=== PATIENT | male | born 1975 | race Caucasian/White ===

== ENCOUNTER 2017-07-30 12:49 | Emergency (ER) | payer MEDICAID ==
[~2017-07-30] VITALS: Ht 170.2 cm; Wt 81.6 kg
[2017-07-30 14:11] LABS: BASOPHIL % 0.7 % (0-2); PLATELET COUNT 241 x10^3mcL (130-400); RED CELL DISTRIBUTION WIDTH 14.1 % (11.5-14.5)
[2017-07-30 14:21] LABS: CALCIUM 8.7 mg/dL (8.5-10.1); CARBON DIOXIDE 32.6 mmol/L (21-32); CHLORIDE SERUM 102 mmol/L (98-107); CREATININE SERUM 0.8 mg/dL (0.7-1.3); GFR1 > 60 mL/min; GLUCOSE SERUM 82 mg/dL (74-106); POTASSIUM SERUM 4.3 mmol/L (3.5-5.1); SODIUM SERUM 139 mmol/L (136-145)
[2017-07-30 14:26] LABS: ALBUMIN 3.5 g/dL (3.4-5.0); ALKALINE PHOSPHATASE 95 U/L (46-116); ALT/SGPT 34 U/L (16-63); AST/SGOT 28 U/L (15-37); BILIRUBIN TOTAL 0.3 mg/dL (0.20-1.00); LIPASE 116 IU/L (73-393); TOTAL PROTEIN, SERUM 7.1 g/dL (6.4-8.2)
[2017-07-30 16:14] VITALS: BP 135/84
== END 2017-07-30 16:14 | disposition home or self-care (01) ==
LOC: ED 12:49
PROVIDERS: Emergency Medicine
DX: S20.211A Contusion of right front wall of thorax, initial encounter (principal); S30.1XXA Contusion of abdominal wall, initial encounter; S80.12XA Contusion of left lower leg, initial encounter; S80.11XA Contusion of right lower leg, initial encounter; S30.0XXA Contusion of lower back and pelvis, initial encounter; V43.92XA Unspecified car occupant injured in collision with other type car in traffic accident, initial encounter; Y93.89 Activity, other specified; Y99.8 Other external cause status; Y92.89 Other specified places as the place of occurrence of the external cause
CPT/HCPCS: J2270; J2405; Q9967

== ENCOUNTER 2018-05-17 08:34 | Emergency (ER) | payer OTHER ==
[~2018-05-17] VITALS: Ht 170.2 cm; Wt 91.6 kg
[2018-05-17 08:38] VITALS: Ht 170.2 cm; Wt 91.6 kg
[2018-05-17 09:23] LABS: microscopic required? NO
[2018-05-17 09:46] LABS: urine erythrocyte NEGATIVE (NEGATIVE)
[2018-05-17 11:50] VITALS: BP 124/71
== END 2018-05-17 11:50 | disposition home or self-care (01) ==
LOC: ED 08:34
PROVIDERS: Emergency Medicine
DX: S39.012A Strain of muscle, fascia and tendon of lower back, initial encounter (principal); W22.8XXA Striking against or struck by other objects, initial encounter; Y93.89 Activity, other specified; Y92.89 Other specified places as the place of occurrence of the external cause; Y99.8 Other external cause status; G40.909 Epilepsy, unspecified, not intractable, without status epilepticus
CPT/HCPCS: J1885; J2270

== ENCOUNTER 2018-06-07 10:16 | Emergency (ER) | payer OTHER ==
[~2018-06-07] VITALS: Ht 170.2 cm; Wt 85.7 kg
[2018-06-07 10:30] VITALS: BP 123/84; Ht 170.2 cm; Wt 85.7 kg
== END 2018-06-07 11:45 | disposition home or self-care (01) ==
LOC: ED 10:16
DX: M25.552 Pain in left hip (principal)